=== PATIENT | male | born 1930 | race Caucasian/White ===

== ENCOUNTER 2016-10-24 11:33 | Day surgery (SDC) | payer OTHER, MEDICARE ==
[2016-10-22 17:09] VITALS: BMI 29.7
[2016-10-24] MEDS ORDERED: PROPOFOL 20 ML ONE ×2 (13:05)
[2016-10-24] MEDS ORDERED: MIDAZOLAM HCL 2 MG/2 ML SINGLE DOSE VIAL ONE (13:05)
[2016-10-24] MEDS ORDERED: ePHEDrine SULFATE 50 MG/1 ML AMPULE ONE (13:35)
[2016-10-24] MEDS ORDERED: LIDOCAINE 1%/EPI 1:100000 (50 ML MULTI DOSE VIAL) INF ONE (13:36)
[2016-10-24] MEDS ORDERED: ceFAZolin SODIUM 1 GM VIAL ONE (13:37)
[2016-10-24] MEDS ORDERED: ceFAZolin SODIUM 1 GM VIAL IVPB ONE (13:38)
[2016-10-24] MEDS ORDERED: LIDOCAINE 1%/EPI 1:100000 (50 ML MULTI DOSE VIAL) ONE (13:39)
[2016-10-24] MEDS ORDERED: DEXAMETHASONE SOD PHOSPHATE 4 MG/1 ML VIAL ONE (14:49)
[2016-10-24] MEDS ORDERED: ONDANSETRON 4 MG/2 ML VIAL ONE (14:49)
[2016-10-24] MEDS ORDERED: BACITRACIN 15 GM TUBE TOPICAL OINTMENT ONE (15:22)
[2016-10-24] MEDS ORDERED: BACITRACIN 15 GM TUBE TOPICAL OINTMENT TP ONE (15:31)
[2016-10-24] MEDS ORDERED: ONDANSETRON 4 MG/2 ML VIAL IVPUSH PRN (16:02)
[2016-10-24] MEDS ORDERED: ONDANSETRON 4 MG/2 ML VIAL IVPB PRN (16:12)
[2016-10-24] MEDS ORDERED: oxyCODONE HCL 5 MG TABLET PO PRN ×2 (16:12→19:40)
[2016-10-24] MEDS ORDERED: LACTATED RINGERS SOLUTION 1,000 ML IV SCH ×2 (16:15)
--- NOTE | 2016-10-24 16:34 | OP ---
Operative Note - Note: Operative Date: 10/24/16 Pre-Operative Diagnosis: nasal defect Operation: flap reconstruction of nose Findings: none Post-Operative Diagnosis: Same as Pre-op Surgeon: Sarwat Parmar Anesthesia: General
[2016-10-24] MEDS ORDERED: oxyCODONE HCL 5 MG TABLET ONE (18:07)
[2016-10-24] MEDS ORDERED: levETIRAcetam XR 500 MG TAB PO SCH (22:00)
[2016-10-24] MEDS: ACETAMINOPHEN 325 MG TABLET (FP) PO PRN (23:15)
[2016-10-24] MEDS: oxyCODONE HCL 5 MG TABLET PO PRN (23:16)
[2016-10-25 06:04] VITALS: PULSE 68
[2016-10-25 06:05] VITALS: BP 115/66; TEMP 98.7
[2016-10-25] MEDS: ACETAMINOPHEN 325 MG TABLET (FP) PO PRN (06:14)
[2016-10-25] MEDS: oxyCODONE HCL 5 MG TABLET PO PRN (06:14)
--- NOTE | 2016-10-25 07:30 | PN ---
Progress Note (short form) - Note Progress Note: all tissues viable, healing well, dressings changed VSS AF ok for discharge today
--- NOTE | 2016-10-27 19:12 | OP ---
DATE OF OPERATION: 10/24/2016 TITLE OF PROCEDURE: Left nasolabial flap reconstruction of nose defect, internal nasal mucosal flap reconstruction of internal lining defect, dorsal nasal local rotation flap islanded on the lateral nasolabial artery, cartilage graft from left ear for nasal support, and excision of defection preparation for a multiple-flap and graft closure of defect. ATTENDING SURGEON: Sarwat Parmar MD ASSISTANTS: None. ANESTHESIA: General endotracheal. The patient is given a total of 40 mL of 1% lidocaine with 1:100,000 epinephrine over the course of the operation, which is a 2-hour period. He received 15 preoperatively and an additional 15 in the middle of the operation and an additional 10 at the end of the operation. The patient is marked in the holding area; counseled on all risks, benefits, and alternatives to the procedure; understands, agrees to proceed. DESCRIPTION OF PROCEDURE: He is draped and prepped in standard surgical fashion. A gram of Ancef is given preoperatively. Sequential compression stockings are applied. Timeout is called. Patient, procedure, site, and side are verified. The defect is excised in preparation for closure. The entirety of the defect is excised in preparation. The internal nasal mucosal lining is addressed with a local rotation flap of internal nasal mucosa, which is elevated posteriorly. The donor site is left open. The flap of mucosa and submucosal tissue is sutured into the defect with a series of interrupted 5-0 chromic gut suture with the knots on the middle lamella of the nose. The next step is creation of a pocket for medical secretary receptionist of a 7-mm cartilage graft between the dome cartilage and the pyriform aperture. A tunnel is made. The cartilage graft is then harvested from a postauricular incision on the left ear. This is harvested from the conchal bowl. The ear cartilage is repaired to itself. Hemostasis is achieved, and closure of the postauricular incision is made with a running 5-0 chromic gut suture. At completion of this, an islanded dorsal nasal flap based on the lateral nasal artery, which is identified and preserved, is rotated into the superior half of the defect. The donor site is closed primarily. This flap includes a nasalis muscle, lateral nasal artery, as it enters into the nasal sidewall. The donor site is closed partially in the left infraorbital skin and partially in the glabella. The glabella is closed primarily with a series of interrupted, buried muscular 5-0 Vicryl suture, followed by a running 6-0 nylon suture within the skin. This is done to both donor sites. The flap is partially inset into the defect, awaiting the final nasolabial flap. An attempt was made to close the entirety of the defect with the dorsal nasal flap. However, this was not possible. At this point, after injection of local anesthetic, the nasal labial flap is elevated on the level of the . It is mobilized into the defect. The distal 4 mm are trimmed, which shows good bleeding tip of the flap. Flap is inset into the surrounding residual inferior defect with a series of interrupted 6-0 nylon suture. The donor site is closed after hemostasis is achieved with a series of interrupted, buried, deep dermal 5-0 Vicryl suture, followed by a running 6-0 nylon suture. Nitroglycerin paste is used on the tip of the flap as routine for vascularity. The skin is then dressed with bacitracin, Xeroform, a bulky dressing. The patient is awoken from anesthesia, having tolerated the procedure well. Alisia [id number]
== END 2016-10-25 08:28 | disposition home or self-care (01) ==
LOC: JASU-SURG 11:33 → J6S 19:30 → JASU-SURG 10-25 08:28
PROVIDERS: ATTEND Plastic Surgery
PROC: 0HX1XZZ Transfer Face Skin, External Approach (ICD-10-PCS; 2016-10-24)
PROC: 0HX1XZZ Transfer Face Skin, External Approach (ICD-10-PCS; 2016-10-24)
PROC: 09UK07Z Supplement Nasal Mucosa and Soft Tissue with Autologous Tissue Substitute, Open Approach (ICD-10-PCS; 2016-10-24)
PROC: 09B1XZZ Excision of Left External Ear, External Approach (ICD-10-PCS; 2016-10-24)
PROC: 0HX1XZZ Transfer Face Skin, External Approach (ICD-10-PCS; principal; 2016-10-24 14:30)
DX: C44.311 Basal cell carcinoma of skin of nose (principal)
CPT/HCPCS: 94760

== ENCOUNTER 2016-11-20 09:04 | Day surgery (SDC) | payer OTHER, MEDICARE ==
[2016-11-13 11:56] VITALS: BMI 29.7
[2016-11-20] MEDS ORDERED: BACITRACIN 15 GM TUBE TOPICAL OINTMENT ONE (09:57)
[2016-11-20] MEDS ORDERED: LIDOCAINE HCL 1%, 10 MG/ML (20ML VIAL) ONE (09:57)
[2016-11-20] MEDS ORDERED: LIDOCAINE 1%/EPI 1:100000 (20 ML MULTI DOSE VIAL) ONE ×2 (09:57→12:53)
[2016-11-20] MEDS ORDERED: ROCURONIUM BROMIDE 50 MG/5 ML VIAL ONE (10:40)
[2016-11-20] MEDS ORDERED: MIDAZOLAM HCL 2 MG/2 ML SINGLE DOSE VIAL ONE (10:41)
[2016-11-20] MEDS ORDERED: LIDOCAINE 1%/EPI 1:100000 (20 ML MULTI DOSE VIAL) INF ONE (11:20)
[2016-11-20] MEDS ORDERED: DESFLURANE GAS 240 ML BOTTLE IH ONE (12:53)
[2016-11-20] MEDS ORDERED: NITROGLYCERIN 2% OINTMENT - 1GM PACKET TD ONE (13:25)
[2016-11-20] MEDS ORDERED: ONDANSETRON 4 MG/2 ML VIAL IVPUSH PRN (13:32)
[2016-11-20] MEDS ORDERED: LACTATED RINGERS SOLUTION 1,000 ML IV SCH ×2 (13:45→14:00)
[2016-11-20] MEDS ORDERED: ONDANSETRON 4 MG/2 ML VIAL IVPB PRN (13:56)
[2016-11-20] MEDS ORDERED: oxyCODONE HCL 5 MG TABLET PO PRN ×2 (13:56)
[2016-11-20 14:49] VITALS: TEMP 97.4
[2016-11-20 16:45] VITALS: PULSE 80
[2016-11-20 16:54] VITALS: BP 112/72
[2016-11-20] MEDS ORDERED: ATORVASTATIN CA 10 MG TABLET (FP) PO SCH (22:00)
[2016-11-20] MEDS ORDERED: levETIRAcetam XR 500 MG TAB PO SCH (22:00)
[2016-11-20] MEDS ORDERED: LEVETIRACETAM PO SCH (22:00)
[2016-11-20] MEDS ORDERED: PATIENT'S OWN MEDICATION (NON-FORMULARY) (Simvastatin [Simvastatin] 20 MG) PO SCH (22:00)
--- NOTE | 2016-11-21 08:11 | OP ---
DATE OF OPERATION: 11/20/2016 TITLE OF PROCEDURE: Division and inset of nasolabial flap with new cartilage graft from right ear to left lateral alar groove, separate secondary graft of cartilage from right ear to right nasal tip soft triangle, and secondary minor rhinoplasty, tip only, to correct deformity of reconstructed nose. ATTENDING SURGEON: Sarwat Parmar MD ANESTHESIA: General endotracheal anesthesia with an additional total of 10 mL of 1% lidocaine with 1:100,000 epinephrine. The patient and his family are counseled on all risks, benefits, and alternatives to the procedure, understand, and agree to proceed. It is discussed with them that there is deviation of the nose with a severely deviated nasal septum which will be attempted to correct. However, residual asymmetry is more than likely. This is understood. The patient is brought to the operating room. Ancef 2 g were given preoperatively. Sequential compression stockings are applied. Position is carefully checked by surgical and anesthesia teams. He is prepped and draped in standard surgical fashion. Markings are made and timeout is called. Patient, procedure, side, and site are verified. At this point, the nasolabial flap is divided close to its pivot point on the left cheek and the residual flap and donor site are excised elliptically. Skin flaps are elevated medially and laterally and closed with a series of interrupted buried deep dermal 4-0 Monocryl suture followed by a running 6-0 nylon suture. After this, mobilization of the tissues fails to correct the distortion and deviation of the nose. Therefore, decision is made for additional rhinoplasty of the tip to correct the deformity. The right ear is injected with a total of 4 mL of 1% lidocaine with 1:100,000 epinephrine. Incision is made posteriorly on the ear and dissection carried down to the level of the conchal cartilage. A cartilage graft is harvested from the josette. Hemostasis is achieved. The wound is irrigated and closure of the skin is performed with a running horizontal mattress 5-0 nylon suture. The graft is prepared. The preexisting cartilage graft on the left nasal ala is mobilized to allow for advancement of the nasal tip toward the right. A supplemental graft is placed from the piriform aperture and to the proximal base of the preexisting alar graft secured with [id number] 5-0 nylon suture. This again only partially corrects the tip distortion. The right rimming incision is made to expose the right soft triangle where a pocket is created for placement of a graft to efface the right soft triangle. The dome cartilages of the tip are freed from the surrounding skin flap in order for them to retract. Several attempts are made to correct for the tip distortion by suturing the lower lateral cartilages to the right side of the nasal septum. However, this creates undue distortion and these are aborted. The right hemitransfixion incision and the rimming incision for placement of the graft are closed after the graft is placed with a series of interrupted 5-0 chromic gut suture. The nasolabial flap is then mobilized, thinned, and inset to the existing defect of the left ala with a series of interrupted 5-0 nylon sutures. The flap and nasal tip are treated routinely with nitro paste, Xeroform, and 4 x 4 gauze is applied. Patient awoke from anesthesia, having tolerated the procedure well. Transferred to recovery without complication. Alisia WAGONER/[id number]
[2016-11-21] MEDS ORDERED: CHOLECALCIFEROL (VITAMIN D3) 1,000 UNIT TABLET (FP) PO SCH (10:00)
== END 2016-11-20 16:20 | disposition home or self-care (01) ==
LOC: FASU 09:04
PROVIDERS: ATTEND Plastic Surgery
PROC: 09UK07Z Supplement Nasal Mucosa and Soft Tissue with Autologous Tissue Substitute, Open Approach (ICD-10-PCS; 2016-11-20)
PROC: 09B0XZZ Excision of Right External Ear, External Approach (ICD-10-PCS; 2016-11-20)
PROC: 0H8 Skin and Breast, Division (ICD-10-PCS; principal; 2016-11-20 11:31)
DX: C44.311 Basal cell carcinoma of skin of nose (principal); M95.0 Acquired deformity of nose
CPT/HCPCS: 94760